=== PATIENT | female | born 1990 | race Caucasian/White ===

== ENCOUNTER 2017-07-26 20:01 | Emergency (ER) | payer BC ==
[~2017-07-26] VITALS: Ht 177.8 cm; Wt 68.7 kg
[2017-07-26 20:05] VITALS: TEMP 38.4; Ht 177.8 cm; Wt 68.7 kg
[2017-07-26] MEDS ORDERED: CEFTRIAXONE SOD INJ 1 GM ADDVIAL IV STA (20:11)
[2017-07-26] MEDS ORDERED: ONDANSETRON INJ 2 MG/ML 2 ML VIAL IV STA (20:11)
[2017-07-26] MEDS ORDERED: SODIUM CHLORIDE 0.9% 1000ML 1,000 ML IV STA (20:11)
[2017-07-26 20:35] LABS: URINE APPEARANCE CLEAR (CLEAR); URINE BILIRUBIN NEG (NEG); URINE COLOR YELLOW; URINE NITRITE NEG (NEG); URINE PH 6.5 (4.5-7.5); URINE SPECIFIC GRAVITY 1.017 (1.000-1.030); UROBILINOGEN NEG (NEG); ZZUR CULT IF INDIC CLEAN CATCH YES
[2017-07-26 20:36] LABS: MANUAL MICROSCOPIC REQUIRED? NO; REVIEW REQ? NO
[2017-07-26 20:51] LABS: BASO % 0.2 %; BASO ABS # 0.03 K/uL (0-0.2); COMPLETE YES; EOS % 0.3 %; HEMATOCRIT 41.4 % (37-47); IG% 0.5 %; LYMPH % 10.7 %; LYMPH ABS # 1.58 K/uL (1.2-3.4); MEAN CELL VOLUME 90.8 fL (80-100); MEAN CORPUSCULAR HEMOGLOBIN 31.4 pg (25-34); MEAN CORPUSCULAR HGB CONC 34.5 g/dl (32-36); MEAN PLATELET VOLUME 10.3 fL (7.4-10.4); MONO % 9.9 %; NEUT % 78.4 %; PLATELET COUNT 324 K/uL (130-400); RED BLOOD COUNT 4.56 M/uL (4.2-5.4); WHITE BLOOD COUNT 14.81 K/uL (4.8-10.8)
[2017-07-26 21:08] LABS: CREATININE 0.8 mg/dl (0.60-1.20); POTASSIUM 3.4 mmol/L (3.5-5.1)
--- NOTE | 2017-07-26 21:39 | DIAGNOSTIC IMAGING REPORT ---
CT SCAN OF THE ABDOMEN AND PELVIS WITHOUT IV CONTRAST CLINICAL HISTORY: Flank pain. COMPARISON STUDY: No priors. TECHNIQUE: CT scan of the abdomen and pelvis is performed from the lung bases to the proximal femora. Images are reviewed in the axial, sagittal, and coronal planes. IV contrast was not administered for this examination as per the referring clinician. A dose lowering technique was utilized adhering to the principles of ALARA. CT DOSE: 846.44 mGy.cm FINDINGS: Lung bases: The heart is normal in size and without pericardial effusion. The lung bases are clear. Liver: The unenhanced liver is normal in size, contour, and attenuation. There is no intrahepatic biliary ductal dilatation. Gallbladder: Contracted. Spleen: The spleen is enlarged measuring 14 cm in length. Pancreas: The unenhanced pancreas is grossly unremarkable. Adrenal glands: Unremarkable. Kidneys: The unenhanced kidneys are normal in size and without hydronephrosis. The right kidney appears mildly edematous and there is right-sided perinephric and periureteric stranding. There are no renal calculi identified. There is no evidence of contour deforming renal mass lesion. Abdominal vasculature: The abdominal aorta is normal in course and caliber. Bowel: The small bowel and colon are normal in course and caliber. The appendix is well-visualized and normal. Peritoneum: There is no intraperitoneal free air or abdominal ascites. Lymphadenopathy: None. Pelvic viscera: The bladder, uterus, and adnexa are normal as visualized. There is trace free fluid in the cul-de-sac. Skeletal structures: No lytic or blastic lesions are seen. IMPRESSION: 1. The right kidney appears mildly edematous and there is mild right-sided perinephric and periureteric stranding. There is no hydronephrosis and no renal calculi are identified. Although this could represent the sequelae of a recently passed kidney stone, the appearance is more suggestive of pyelonephritis. Correlation with clinical findings and urinalysis will be required. 2. Splenomegaly. 3. There is trace and likely physiologic free fluid in the cul-de-sac. Electronically signed by: Edwar Fierro M.D. 07/26/2017 9:38 PM Dictated Date/Time: 07/26/2017 9:33 PM
[2017-07-26] MEDS ORDERED: NITROFURANTOIN MONOHYDRATE 100 MG CAP PO STA (21:42)
[2017-07-26] MEDS ORDERED: NITR-5 PO (21:47)
[2017-07-26] MEDS ORDERED: ONDA4TAB10 SL (21:47)
--- NOTE | 2017-07-26 21:48 | EMERGENCY ROOM VISIT NOTE ---
History Report prepared by Dimitri: Sebastián Ramirez Under the Supervision of: Betsy LoweO. First contact with patient: 20:10 Chief Complaint: KIDNEY STONE Stated Complaint: KIDNEY PAIN History of Present Illness The patient is a 27 year old female who presents to the Emergency Room with complaints of constant moderate right lower back pain for the past week. The patient states that the pain originally started bilaterally, then went to the left side, and now it is on the right side. She states that the pain is worsened with coughing, deep inspiration, and long periods of sitting. It was also relieved with Icy Hot. She states that lying down makes that pain better. The patient additionally states that 4 days ago she developed a fever, and she was having the sweats and bilateral abdominal pain. She states that she is having some urinary frequency and urgency. She denies any dysuria, hematuria, nausea, vomiting, and diarrhea. She states that her last period was three weeks ago, and there is no chance of . The patient states that she smokes a half a pack per day, and she drinks heavily. Source of History: patient Onset: a week ago Position: back (right lower) Symptom Intensity: moderate Timing: constant Modifying Factors (Worsening): breathing, other (coughing) Modifying Factors (Relieving): other (icy hot) Review of Systems See HPI for pertinent positives & negatives. A total of 10 systems reviewed and were otherwise negative. Past Medical & Surgical Surgical Problems: (1) [place] teeth extracted Social History Smoking Status: Current Every Day Smoker Alcohol Use: heavy Marital Status: single Occupation Status: employed Current/Historical Medications Scheduled Nitrofurantoin Monohyd Macrocr (Macrobid), 100 MG PO BID Ondasetron Odt (Zofran Odt), 4 MG SL Q6H Allergies Coded Allergies: No Known Allergies (Unverified , 07/26/17) Physical Exam Vital Signs Date Time Temp Pulse Resp B/P (MAP) Pulse Ox O2 Delivery O2 Flow Rate FiO2 07/26/17 22:10 84 17 104/61 99 Room Air 07/26/17 20:05 38.4 108 20 120/69 98 Room Air Physical Exam CONSTITUTIONAL/VITAL SIGNS: Reviewed / noted above. GENERAL: Non-toxic in appearance. INTEGUMENTARY: Warm, dry, and [place]. HEAD: Normocephalic. EYES: without scleral icterus or trauma. ENT/OROPHARYNX: clear and moist. LYMPHADENOPATHY/NECK: Is supple without lymphadenopathy or meningismus. RESPIRATORY: Lungs clear and equal. CARDIOVASCULAR: Regular rate and rhythm. GI/ABDOMEN: Mild tenderness to the lower abdomen. Soft. No organomegaly or pulsatile mass. No rebound or guarding. Normal bowel sounds. EXTREMITIES: Warm and well perfused. BACK: Mild right CVA tenderness. NEUROLOGICAL: Intact without focal deficits. PSYCHIATRIC: normal affect. MUSCULOSKELETAL: Normally developed with good muscle tone. Medical Decision & Procedures ER Provider Diagnostic Interpretation: Radiology results as stated below per my review and radiologist interpretation: CT SCAN OF THE ABDOMEN AND PELVIS WITHOUT IV CONTRAST CLINICAL HISTORY: Flank pain. COMPARISON STUDY: No priors. TECHNIQUE: CT scan of the abdomen and pelvis is performed from the lung bases to the proximal femora. Images are reviewed in the axial, sagittal, and coronal planes. IV contrast was not administered for this examination as per the referring clinician. A dose lowering technique was utilized adhering to the principles of ALARA. CT DOSE: 846.44 mGy.cm FINDINGS: Lung bases: The heart is normal in size and without pericardial effusion. The lung bases are clear. Liver: The unenhanced liver is normal in size, contour, and attenuation. There is no intrahepatic biliary ductal dilatation. Gallbladder: Contracted. Spleen: The spleen is enlarged measuring 14 cm in length. Pancreas: The unenhanced pancreas is grossly unremarkable. Adrenal glands: Unremarkable. Kidneys: The unenhanced kidneys are normal in size and without hydronephrosis. The right kidney appears mildly edematous and there is right-sided perinephric and periureteric stranding. There are no renal calculi identified. There is no evidence of contour deforming renal mass lesion. Abdominal vasculature: The abdominal aorta is normal in course and caliber. Bowel: The small bowel and colon are normal in course and caliber. The appendix is well-visualized and normal. Peritoneum: There is no intraperitoneal free air or abdominal ascites. Lymphadenopathy: None. Pelvic viscera: The bladder, uterus, and adnexa are normal as visualized. There is trace free fluid in the cul-de-sac. Skeletal structures: No lytic or blastic lesions are seen. IMPRESSION: 1. The right kidney appears mildly edematous and there is mild right-sided perinephric and periureteric stranding. There is no hydronephrosis and no renal calculi are identified. Although this could represent the sequelae of a recently passed kidney stone, the appearance is more suggestive of pyelonephritis. Correlation with clinical findings and urinalysis will be required. 2. Splenomegaly. 3. There is trace and likely physiologic free fluid in the cul-de-sac. Electronically signed by: Edwar Fierro M.D. 07/26/2017 9:38 PM Dictated Date/Time: 07/26/2017 9:33 PM Laboratory Results 07/26/17 20:45 Red Blood Count 4.56, Mean Corpuscular Volume 90.8, Mean Corpuscular Hemoglobin 31.4, Mean Corpuscular Hemoglobin Concent 34.5, Mean Platelet Volume 10.3, Neutrophils (%) (Auto) 78.4, Lymphocytes (%) (Auto) 10.7, Monocytes (%) (Auto) 9.9, Eosinophils (%) (Auto) 0.3, Basophils (%) (Auto) 0.2, Neutrophils # (Auto) 11.61, Lymphocytes # (Auto) 1.58, Monocytes # (Auto) 1.46, Eosinophils # (Auto) 0.05, Basophils # (Auto) 0.03 07/26/17 20:45 Test 07/26/17 20:21 07/26/17 20:45 Urine Color YELLOW Urine Appearance CLEAR (CLEAR) Urine pH 6.5 (4.5-7.5) Urine Specific [place] 1.017 (1.000-1.030) Urine Protein 1+ (NEG) Urine Glucose (UA) NEG (NEG) Urine Ketones NEG (NEG) Urine Occult Blood 2+ (NEG) Urine Nitrite NEG (NEG) Urine Bilirubin NEG (NEG) Urine Urobilinogen NEG (NEG) Urine Leukocyte Esterase MODERATE (NEG) Urine WBC (Auto) >30 /hpf (0-5) Urine RBC (Auto) 10-30 /hpf (0-4) Urine Hyaline Casts (Auto) 10-30 /lpf (0-5) Urine Epithelial Cells (Auto) 10-20 /lpf (0-5) Urine Bacteria (Auto) 3+ (NEG) Urine Test NEG (NEG) White Blood Count 14.81 K/uL (4.8-10.8) Red Blood Count 4.56 M/uL (4.2-5.4) Hemoglobin 14.3 g/dL (12.0-16.0) Hematocrit 41.4 % (37-47) Mean Corpuscular Volume 90.8 fL (80-100) Mean Corpuscular Hemoglobin 31.4 pg (25-34) Mean Corpuscular Hemoglobin Concent 34.5 g/dl (32-36) Platelet Count 324 K/uL (130-400) Mean Platelet Volume 10.3 fL (7.4-10.4) Neutrophils (%) (Auto) 78.4 % Lymphocytes (%) (Auto) 10.7 % Monocytes (%) (Auto) 9.9 % Eosinophils (%) (Auto) 0.3 % Basophils (%) (Auto) 0.2 % Neutrophils # (Auto) 11.61 K/uL (1.4-6.5) Lymphocytes # (Auto) 1.58 K/uL (1.2-3.4) Monocytes # (Auto) 1.46 K/uL (0.11-0.59) Eosinophils # (Auto) 0.05 K/uL (0-0.5) Basophils # (Auto) 0.03 K/uL (0-0.2) RDW Standard Deviation 45.2 fL (36.4-46.3) RDW Coefficient of Variation 13.5 % (11.5-14.5) Immature Granulocyte % (Auto) 0.5 % Immature Granulocyte # (Auto) 0.08 K/uL (0.00-0.02) Anion Gap 7.0 mmol/L (3-11) Est Creatinine Clear Calc Drug Dose 115.2 ml/min Estimated GFR () 117.9 Estimated GFR (Non- 101.8 BUN/Creatinine Ratio 9.0 (10-20) Calcium Level 9.0 mg/dl (8.5-10.1) Total Bilirubin 0.4 mg/dl (0.2-1) Direct Bilirubin 0.1 mg/dl (0-0.2) Aspartate Amino Transf (AST/SGOT) 29 U/L (15-37) Alanine Aminotransferase (ALT/SGPT) 44 U/L (12-78) Alkaline Phosphatase 110 U/L (45-117) Total Protein 7.2 gm/dl (6.4-8.2) Albumin 2.9 gm/dl (3.4-5.0) Lipase 89 U/L (73-393) Laboratory results as stated above per my review. Medications Administered Medications (Trade) Dose Ordered Sig/Neel Route Start Time Stop Time Status Last Admin Dose Admin Sodium Chloride 1,000 ml @ 999 mls/hr Q1H1M STAT IV 07/26/17 20:11 07/26/17 21:11 DC 07/26/17 20:34 999 MLS/HR Ondansetron HCl (Zofran Inj) 4 mg NOW STAT IV 07/26/17 20:11 07/26/17 20:12 DC 07/26/17 20:34 4 MG Ceftriaxone Sodium (Rocephin Inj) 1 gm NOW STAT IV 07/26/17 20:11 07/26/17 20:12 DC 07/26/17 20:34 1 GM Nitrofurantoin Macrocrystals (Macrobid Cap) 100 mg NOW STAT PO 07/26/17 21:42 07/26/17 21:44 DC 07/26/17 22:11 100 MG ED Course 2010: Rocephin Inj 1gm IV, Zofran Inj 4mg IV, Sodium Chloride 1000 ml @ 999 mls/ hr IV 2044: Previous medical records were reviewed. The patient was evaluated in room C9. A complete history and physical examination was performed. 2139: On reevaluation, the patient is doing well. I discussed the results and findings with the patient. She verbalized agreement of the treatment plan. She was discharged home. 2141: Macrobid Cap 100mg PO Medical Decision Differential considered: pancreatitis, hepatitis, or acute cholecystitis, AAA, UTI, pyelonephritis, kidney stones, appendicitis, diverticulitis, shingles, bowel obstruction mesenteric ischemia, intussusception,hernia, ovarian torsion, ruptured ovarian cyst,ectopic , . This is a 27-year-old female who presents to the ED with a chief complaint of fever. For the past 3-4 days. She is also had some low back discomfort for about a week. The patient has some frequency and urgency. Last menstrual period was 3 weeks ago. Denies any vaginal discharge or bleeding. Temperature today is 38.4. Heart rate is 108. Exam reveals some mild right CVA tenderness. She has some mild tenderness in the low abdomen. White blood cell count is 14.8. Complete metabolic panel is unremarkable. Urine suggest infection. test was negative. She was treated with 1 L normal saline IV, Rocephin 1 g IV and Zofran IV. She was also given Macrobid by mouth.. CT scan is suggestive of pyelonephritis. The patient appears to be well. She is felt to be stable for discharge. The patient will be discharged on Macrobid and Zofran. Blood Pressure Screening Patient's blood pressure: Normal blood pressure Impression Primary Impression: Pyelonephritis Scribe Attestation The scribe's documentation has been prepared under my direction and personally reviewed by me in its entirety. I confirm that the note above accurately reflects all work, treatment, procedures, and medical decision making performed by me. Departure Information Dispostion Home / Self-Care Prescriptions Ondasetron Odt (ZOFRAN ODT) 4 Mg Tab 4 MG SL Q6H for Nausea, #10 TAB Prov: Francisco Miller D.O. 07/26/17 Nitrofurantoin Monohyd Macrocr (Macrobid) 100 Mg Cap 100 MG PO BID, #14 CAP Prov: Francisco Miller D.Bonita. 07/26/17 Referrals No Doctor, Assigned (PCP) Forms HOME CARE DOCUMENTATION FORM, IMPORTANT VISIT INFORMATION Patient Instructions My [facility], Pyelonephritis Dc Additional Instructions Macrobid as prescribed. Zofran: Allow one tablet to dissolve under the tongue every 6 hours as needed for nausea or vomiting. Follow-up with your doctor for further care and evaluation in 1-2 days. Return to the emergency department for worsening or new symptoms or any concerns. You have been examined and treated today on an emergency basis only. This is not a substitute for, or an effort to provide, complete comprehensive medical care. It is impossible to recognize and treat all injuries or illnesses in a single emergency department visit. It is therefore important that you follow up closely with your doctor. Call as soon as possible for an appointment.
[2017-07-26 22:10] VITALS: BP 104/61; PULSE 84; O2SAT 99
== END 2017-07-26 22:35 | disposition home or self-care (01) ==
LOC: C.EDB 20:04 → C.EDC 22:35
DX: N10 Acute pyelonephritis (principal); F17.200 Nicotine dependence, unspecified, uncomplicated